=== PATIENT | female | born 1955 | race African-American/Black ===

== ENCOUNTER 2023-12-22 06:10 | Emergency (ER) | payer OTHER ==
[2023-12-22 06:32] VITALS: BMI 36.1
[2023-12-22] MEDS ORDERED: ACETAMINOPHEN 325 MG TABLET (FP) ONE (17:01)
[2023-12-22 17:24] VITALS: BP 136/76; PULSE 68; RESP 17; TEMP 97.6
== END 2023-12-22 17:00 | disposition home or self-care (01) ==
LOC: JER 06:10
DX: S20.211A Contusion of right front wall of thorax, initial encounter (principal); S40.011A Contusion of right shoulder, initial encounter; S09.90XA Unspecified injury of head, initial encounter; R07.81 Pleurodynia; W01.198A Fall on same level from slipping, tripping and stumbling with subsequent striking against other object, initial encounter
CPT/HCPCS: 70450-TC; 71046-TC-FY; 72125-TC; 73030-TC-RT-FY; 99284-25